=== PATIENT | male | born 1995 | race Caucasian/White ===

== ENCOUNTER 2020-05-04 15:12 | Emergency (ER) | payer SELFPAY ==
[2020-05-04 15:14] VITALS: PULSE 92; RESP 18; TEMP 36.5; O2SAT 96; BMI 30.8
--- NOTE | 2020-05-04 15:32 | ED_ITS ---
HPI - Nausea/Vomiting/Diarrhea General: Chief complaint: Nausea/Vomiting/Diarrhea Stated complaint: diarrhea, headaches, wants a full work up for STDS Time Seen by Provider: 05/04/20 15:25 History of Present Illness: HPI Narrative: Patient is a 25-year-old male who comes to the ED with concerns of possible STD exposure and multiple other complaints. Patient says for the past 3 weeks he has had nasal congestion/drainage, dry cough, headache and diarrhea. Denies any fever, chest pain, nausea/vomiting. Patient says 3 weeks ago was with a female and states that they did not have sex but they did mess around. He does not know her sexual history or if she has had any past STDs. He is concerned and wanted to get tested for STDs and HIV. Denies any sores, lesions on penis, discharge from penis, pain or tenderness to the testicles, dysuria or hematuria. Denies any Covid exposure. Associated nausea: No Associated symtoms: Reports headache(s); Denies change in vision, chest pain, dysuria, fatigue, nausea or palpitations Review of Systems Const: Denies: fever(s), chills or fatigue Eyes: Denies: change in vision or eye discomfort ENMT: Reports: throat pain (Only in the mornings), nasal discharge and nasal congestion; Denies: odynophagia Card: Denies: chest pain, palpitations, edema, swelling of feet/ankles, dyspnea on exertion or orthopnea Resp: Reports: non-productive cough; Denies: dyspnea or productive cough GI: Reports: diarrhea; Denies: abdominal pain, nausea, vomiting, constipation or hematochezia : Denies: flank pain, difficulty urinating, dysuria, hematuria, genital pain, genital lesions or penile discharge Musc: Denies: neck pain, back pain or extremity swelling Skin/Breast: Denies: rash or new lesions Neuro: Reports: headache(s); Denies: numbness in extremities or weakness in extremities Physical Exam Const: COMMON NORMALS: no acute distress, patient oriented x3, healthy appearing and alert GENERAL APPEARANCE: cooperative and comfortable HENMT: COMMON NORMALS: normocephalic HEAD & SCALP: normocephalic MOUTH: Normal oral and palatal mucosa present THROAT: posterior oropharynx normal and uvula midline Eye: COMMON NORMALS: Equal, round and reactive pupils present PUPIL: Yes Equal, round and reactive pupils present Neck/C-Spine: COMMON NORMALS: supple GENERAL: Yes normal visual inspection Resp: COMMON NORMALS: normal respiratory effort, No retractions, No use of accessory muscles and clear to auscultation bilaterally EFFORT & INSPECTION: Yes able to speak in complete sentences, No tachypneic, No respiratory distress and No labored AUSCULTATION: clear to auscultation bilaterally Cardio: COMMON NORMALS: regular rate, regular rhythm, S1 normal heart sound present, S2 normal heart sound present, No gallops present (Cardio), No clicks present (Cardio), No murmurs present (Cardio) and Peripheral pulses 2+ throughout RATE: regular rate RHYTHM: regular rhythm HEART SOUNDS: S1 normal heart sound present and S2 normal heart sound present PERIPHERAL PULSES: Peripheral pulses 2+ throughout GI: COMMON NORMALS: Normal to inspection, nondistended, normoactive bowel sounds present, Soft to palpation, non-tender and no masses PALPATION: Yes Soft to palpation : COMMON NORMALS: Yes no CVA tenderness BLADDER/KIDNEY EXAM: Yes no CVA tenderness Back/Pelvis: COMMON NORMALS: no CVA tenderness Extremity: COMMON NORMALS: normal to inspection and no pedal edema Neuro: COMMON NORMALS: patient oriented x3 and moves all extremities SENSORIUM/ORIENTATION: Yes alert Skin: GENERAL SKIN EXAM: dry skin Course Vital Signs: Vital signs: Vital Signs Temperature 97.7 F 05/04/20 15:14 Pulse Rate 88 05/04/20 17:17 Respiratory Rate 16 05/04/20 17:17 Blood Pressure 136/78 05/04/20 17:17 Pulse Oximetry 99 05/04/20 17:17 MDM - Nausea/Vomiting/Diarrhea MDM Narrative: Medical decision making narrative: Patient is a 25-year-old male who comes to the ED wanting STD testing and URI symptoms. Patient says he was sexually active with a female and he does not know her past sexual history. He would like to get all STD testing done. He denies any lesions or sores on his penis, no discharge from penis or pain or tenderness in his testicles. Patient does have some upper respiratory symptoms such as nasal drainage and congestion cough. Denies any fevers. Patient is a healthy male that appears in no acute distress or pain. Lungs were clear to auscultation bilaterally and no signs of any respiratory distress. White blood cell count 12.8 the rest of CBC and CMP was unremarkable. Chest x-ray showed no acute findings. Syphilis negative, HIV pending, gonorrhea chlamydia pending. Patient was given a prophylactic treatment of Rocephin and azithromycin for gonorrhea chlamydia. Patient diagnosed with viral syndrome and potential exposure to STD. He was discharged told to follow-up with his PCP in 7 to 10 days for reevaluation. Told him to contact [facility] to get the results of STD labs that were pending. Return to ED precautions given. Patient understood agree with plan. Lab Data: Attestation: I reviewed the patient's lab results. Labs: Lab Results 05/04/20 05/04/20 05/04/20 Range/Units 16:00 16:00 16:00 WBC 12.8 H (4.0-10.0) 10^3/ uL RBC 5.38 H (4.1-5.3) 10^6/u L Hgb 15.7 (11.7-16.6) g/dL Hct 48.7 (42.0-52.0) % MCV 90.5 (80-94) fL MCH 29.2 (28.0-34.0) pg MCHC 32.2 (30.0-36.0) g/dL RDW 12.9 (12.1-15.1) % Plt Count 350 (130-400) 10^3/c mm MPV 9.7 (7.4-10.4) fL Neut % (Auto) 72.2 % Lymph % (Auto) 16.1 % [place] % (Auto) 8.0 % Eos % (Auto) 1.8 % Baso % (Auto) 0.8 % Neut # (Auto) 9.26 H (1.8-7.7) 10^3/u L Lymph # (Auto) 2.1 (0.8-4.8) 10^3/u L Pre[place] # (Auto) 1.0 H (0.2-0.9) 10^3/u L Eos # (Auto) 0.2 (0.0-0.8) 10^3/u L Baso # (Auto) 0.1 (0.0-0.1) 10^3/u L Nucleated RBC % (a uto) 0 % Nucleated RBCs # 0.0 /100WBC Sodium 140 (136-145) mmol/L Potassium 4.2 (3.5-5.1) mmol/L Chloride 104 (98-107) mmol/L Carbon Dioxide 26 (22-29) mmol/L Anion Gap 14.2 (5-19) BUN 15 (6-20) mg/dL Creatinine 0.9 (0.7-1.2) mg/dL GFR Calculation 102.8 (90-130) mL/min Glucose 100 (65-115) mg/dL Calculated Osmolal ity 291 (285-295) mOsm/k g Calcium 9.4 (8.5-10.5) mg/dL Total Bilirubin 0.3 (0.15-1.2) mg/dL AST 54 H (0-40) U/L ALT 112 H (0-41) U/L Alkaline Phosphata se 149 H (40-130) IU/L Total Protein 6.9 (6.6-8.7) g/dL Albumin 4.7 (3.5-5.2) g/dL Globulin 2.2 (1.3-4.6) g/dL Lipase 23 (13-60) U/L Urine Color (Yellow) Urine Appearance (CLEAR) Urine pH (5-7) Ur Specific Gravit y (1.005-1.030) Urine Protein (Negative) Urine Glucose (UA) (Normal) Urine Ketones (Negative) Urine Blood (Negative) Urine Nitrate (Negative) Urine Bilirubin (Negative) Urine Urobilinogen (Negative) mg/dL Ur Leukocyte Yeimi ase (Negative) Urine RBC (0-2) /hpf Urine WBC (0-5) /hpf Ur Squamous Epith Cells (0-5) /hpf Amorphous Sediment Urine Bacteria (NONE) /hpf RPR Nonreactive (Nonreactive) HIV 1&2 Ab & HIV 1 Ag Non-reactive (Non-Reactiv) HIV 1&2 Antibody Non-reactive (Non-Reactiv) 05/04/20 Range/Units 16:08 WBC (4.0-10.0) 10^3/ uL RBC (4.1-5.3) 10^6/u L Hgb (11.7-16.6) g/dL Hct (42.0-52.0) % MCV (80-94) fL MCH (28.0-34.0) pg MCHC (30.0-36.0) g/dL RDW (12.1-15.1) % Plt Count (130-400) 10^3/c mm MPV (7.4-10.4) fL Neut % (Auto) % Lymph % (Auto) % [place] % (Auto) % Eos % (Auto) % Baso % (Auto) % Neut # (Auto) (1.8-7.7) 10^3/u L Lymph # (Auto) (0.8-4.8) 10^3/u L Preble # (Auto) (0.2-0.9) 10^3/u L Eos # (Auto) (0.0-0.8) 10^3/u L Baso # (Auto) (0.0-0.1) 10^3/u L Nucleated RBC % (a uto) % Nucleated RBCs # /100WBC Sodium (136-145) mmol/L Potassium (3.5-5.1) mmol/L Chloride (98-107) mmol/L Carbon Dioxide (22-29) mmol/L Anion Gap (5-19) BUN (6-20) mg/dL Creatinine (0.7-1.2) mg/dL GFR Calculation (90-130) mL/min Glucose (65-115) mg/dL Calculated Osmolal ity (285-295) mOsm/k g Calcium (8.5-10.5) mg/dL Total Bilirubin (0.15-1.2) mg/dL AST (0-40) U/L ALT (0-41) U/L Alkaline Phosphata se (40-130) IU/L Total Protein (6.6-8.7) g/dL Albumin (3.5-5.2) g/dL Globulin (1.3-4.6) g/dL Lipase (13-60) U/L Urine Color Yellow (Yellow) Urine Appearance Clear (CLEAR) Urine pH 5 (5-7) Ur Specific Gravit y 1.020 (1.005-1.030) Urine Protein Neg (Negative) Urine Glucose (UA) Norm (Normal) Urine Ketones Negative (Negative) Urine Blood Neg (Negative) Urine Nitrate Negative (Negative) Urine Bilirubin Neg (Negative) Urine Urobilinogen Norm (Negative) mg/dL Ur Leukocyte Yeimi ase Negative (Negative) Urine RBC None (0-2) /hpf Urine WBC None (0-5) /hpf Ur Squamous Epith Cells 0-4 H (0-5) /hpf Amorphous Sediment Not Reportable Urine Bacteria Trace (NONE) /hpf RPR (Nonreactive) HIV 1&2 Ab & HIV 1 Ag (Non-Reactiv) HIV 1&2 Antibody (Non-Reactiv) Imaging Data^: CXR: Attestation: I personally reviewed and interpreted this imaging study as follows: Radiologist's impression: [address] [address] XRay Report Signed Patient: Tereso Hammond Unit #: [id number] : 1995 Age/Sex: 25 / M ADM Date: 04/16 03/05 Loc: ER Room/Bed: Attending Dr: Ordering Provider/Ordering MD: Jersey Swanson Date of Service: 05/04/20 Procedure(s): XR chest 1V portable [id number] Accession Number(s): [id number] Report Number: [id number] WS: [id number] Exam: XR chest 1V portable [id number] Date/Time of Exam: 05/04/2020 4:00 PM Reason For Exam: cough Findings: The lungs are clear and fully expanded. Costophrenic angles are sharp. No infiltrates. Bronchovascular relief appears normal. Cardiac silhouette is unremarkable. Bony elements are intact. XR/XR chest 1V portable [id number] IMPRESSION: Unremarkable chest radiograph. Dictated By: Austin Mathew DO Signed By: Austin Mathew DO Signed Date/Time: 05/04/201615 DD/ 15 Discharge Plan Discharge Patient Disposition: Home Clinical Impression: Viral syndrome, Potential exposure to STD Condition: Stable Prescriptions: No Action ibuprofen 200 mg Tablet 800 mg PO PRN RF: 0 Day Time Allergy Pill 2 tab PO PRN RF: 0 Discharge Orders: Discharge Order (Routine); Ordered 05/04/20 Ordered By: Jersey Swanson Discharge Diet: Regular Discharge Activity: Increase activity as tolerated Patient Instructions: Chlamydia Infection (ED), Sexually Transmitted Diseases (ED), Safe Sex (ED), Viral Syndrome (ED) Activity Restrictions/Additional Instructions: Follow-up with medical provider as directed in 7 to 10 days for reevaluation. Return to the ER or your medical provider if condition worsens. Please read and understand discharge instructions. If any questions, please ask. Coding Level of Care Code ED Forest Manager for Kristofer Fwd Exam Comprehensive
--- NOTE | 2020-05-04 15:55 | XR_ITS ---
WS: [id number] Exam: XR chest 1V portable [id number] Date/Time of Exam: 05/04/2020 4:00 PM Reason For Exam: cough Findings: The lungs are clear and fully expanded. Costophrenic angles are sharp. No infiltrates. Bronchovascula r relief appears normal. Cardiac silhouette is unremarkable. Bony elements are intact. XR/XR chest 1V portable [id number] IMPRESSION: Unremarkable chest radiograph.
[2020-05-04] MEDS: sodium chloride 0.9% 1,000 ML 999 ML IV (16:16)
[2020-05-04] MEDS: azithromycin 250 mg Tablet 1000 MG PO (16:30)
[2020-05-04 16:34] LABS: Basophils # 0.1 10^3/uL (0.0-0.1); Basophils % 0.8 %; Eosinophils # 0.2 10^3/uL (0.0-0.8); Eosinophils % 1.8 %; Hematocrit 48.7 % (42.0-52.0); Hemoglobin 15.7 g/dL (11.7-16.6); Lymphocytes # 2.1 10^3/uL (0.8-4.8); Lymphocytes % 16.1 %; Mean Corpuscular HGB Conc 32.2 g/dL (30.0-36.0); Mean Corpuscular Hemoglobin 29.2 pg (28.0-34.0); Mean Corpuscular Volume 90.5 fL (80-94); Mean Platelet Volume 9.7 fL (7.4-10.4); Neutrophils # 9.26 10^3/uL (1.8-7.7); Neutrophils % 72.2 %; Nucleated Red Blood Cells % 0 %; Platelet Count 350 10^3/cmm (130-400); Red Blood Count 5.38 10^6/uL (4.1-5.3); Red Cell Distribution Width 12.9 % (12.1-15.1); White Blood Count 12.8 10^3/uL (4.0-10.0)
[2020-05-04 16:55] LABS: Alanine Aminotransferase 112 U/L (0-41); Albumin Level 4.7 g/dL (3.5-5.2); Alkaline Phosphatase 149 IU/L (40-130); Anion Gap 14.2 (5-19); Aspartate Amino Transferase 54 U/L (0-40); Blood Urea Nitrogen 15 mg/dL (6-20); Calcium 9.4 mg/dL (8.5-10.5); Carbon Dioxide 26 mmol/L (22-29); Chloride 104 mmol/L (98-107); Globulin 2.2 g/dL (1.3-4.6); Glomerular Filtration Rate 102.8 mL/min (90-130); Glucose 100 mg/dL (65-115); Lipase 23 U/L (13-60); Osmolality Calculated 291 mOsm/kg (285-295); Potassium 4.2 mmol/L (3.5-5.1); Sodium 140 mmol/L (136-145); Total Bilirubin 0.3 mg/dL (0.15-1.2); Total Protein 6.9 g/dL (6.6-8.7)
[2020-05-04 16:59] LABS: Rapid Plasma Reagin Syphilis Nonreactive (Nonreactive)
[2020-05-04 17:17] VITALS: BP 136/78; PULSE 88; RESP 16; O2SAT 99
[2020-05-04 17:19] LABS: Bilirubin Urine Neg (Negative); Blood Urine Neg (Negative); Glucose Urine UA Norm (Normal); Ketones Urine Negative (Negative); Leukocyte Esterase Urine Negative (Negative); Nitrate Urine Negative (Negative); Protein Urine Neg (Negative); Urine Appearance Clear (CLEAR); Urine Color Yellow (Yellow); Urobilinogen Urine Norm (Negative); pH Urine 5 (5-7)
[2020-05-04 17:20] LABS: Add Urine Culture? No; Bacteria Urine TRACE /hpf; Squamous Epithelial Cell Urine 0-4 /hpf (0-5)
[2020-05-04 19:46] LABS: HIV 1 & 2 Antibody Non-Reactive (Non-Reactiv); HIV 1 & 2 Antigen Non-Reactive (Non-Reactiv)
== END 2020-05-04 17:19 | disposition home or self-care (01) ==
PROVIDERS: Emergency Provider Physician Assistant
DX: Z20.2 Contact with and (suspected) exposure to infections with a predominantly sexual mode of transmission (principal); B34.9 Viral infection, unspecified
CPT/HCPCS: 12345; 71045; 80053; 81001; 83690; 85025; 86592; 87806; 96365; 99281; 99283; J0696; J7030; Q0144

== ENCOUNTER 2020-06-06 13:01 | Emergency (ER) | payer SELFPAY ==
--- NOTE | 2020-06-06 13:07 | ECG_ITS ---
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 [email or web address]
--- NOTE | 2020-06-06 13:07 | XRR_ITS ---
PROCEDURE INFORMATION: Exam: XR Chest, 1 View Exam date and time: 06/06/2020 1:10 PM Age: 25 years old Clinical indication: Cough and dyspnea; Patient HX: Chest chavez when he drinks energy drinks; Additional info: Dyspnea/cough TECHNIQUE: Imaging protocol: XR of the chest Views: 1 view. COMPARISON: CR XR chest 1V portable [id number] 05/04/2020 4:06 PM FINDINGS: Lungs: Unremarkable. No consolidation. Pleural space: Unremarkable. No pleural effusion. No pneumothorax. Heart/Mediastinum: Unremarkable. No cardiomegaly. Bones/joints: Unremarkable. XR/XR chest 1V portable [id number] IMPRESSION: No acute findings.
[2020-06-06 13:18] VITALS: BP 132/95; PULSE 103; RESP 16; TEMP 36.9; O2SAT 97; BMI 32.3
--- NOTE | 2020-06-06 13:45 | ED_ITS ---
Documented by User: ASHER Younger 06/07/20 17:32 HPI - Chest Pain General: Chief Complaint: Chest Pain Stated Complaint: chest pain when consuming energy drinks Time Seen by Provider: 06/06/20 13:43 History of Present Illness: HPI narrative: Patient is a 25-year-old male who comes to the ED with chest pain. Patient says he started getting chest pain about 4 days ago. He admits to drinking multiple energy drinks a day for the past week and also consuming this preworkout product that has caffeine as well. He says he has had well over the recommended doses of preworkout in the last week. He now has this chest pain that he describes kind of as an aching and burning feeling. Says whenever he eats or drinks something chest pain increases. He says he has a history of acid reflux but usually just drinks some milk to help with symptoms, but this time drinking milk did not help his symptoms. Denies any shortness of breath, nausea/vomiting, abdominal pain or bladder or bowel symptoms. Associated symptoms: Deny abdominal pain, dyspnea, fever(s), nausea, palpitations or vomiting Review of Systems Const: Denies: fever(s), chills or fatigue Eyes: Denies: change in vision or eye discomfort ENMT: Reports: other (acid reflux symptoms); Denies: throat pain, odynophagia, nasal discharge or nasal congestion Card: Reports: chest pain; Denies: palpitations, edema, swelling of feet/ankles, dyspnea on exertion or orthopnea Resp: Denies: dyspnea, productive cough or non-productive cough GI: Denies: abdominal pain, nausea, vomiting, diarrhea, constipation or hematochezia : Denies: flank pain, difficulty urinating, dysuria or hematuria Musc: Denies: neck pain, back pain or extremity swelling Skin/Breast: Denies: rash or new lesions Neuro: Denies: headache(s), numbness in extremities or weakness in extremities PFSH ED PFSH: Social History Smoking and tobacco status: current every day smoker e-cigarettes Alcohol intake: current Alcohol intake frequency: holidays/special occasions only Physical Exam Const: COMMON NORMALS: no acute distress, patient oriented x3, healthy appearing and alert GENERAL APPEARANCE: cooperative and comfortable HENMT: COMMON NORMALS: normocephalic HEAD & SCALP: normocephalic MOUTH: Normal oral and palatal mucosa present THROAT: posterior oropharynx normal and uvula midline Eye: COMMON NORMALS: Equal, round and reactive pupils present PUPIL: Yes Equal, round and reactive pupils present Neck/C-Spine: COMMON NORMALS: supple GENERAL: Yes normal visual inspection Resp: COMMON NORMALS: normal respiratory effort, No retractions, No use of accessory muscles and clear to auscultation bilaterally AUSCULTATION: clear to auscultation bilaterally Cardio: COMMON NORMALS: regular rate, regular rhythm, S1 normal heart sound present, S2 normal heart sound present, No gallops present (Cardio), No clicks present (Cardio), No murmurs present (Cardio) and Peripheral pulses 2+ throughout RATE: regular rate RHYTHM: regular rhythm HEART SOUNDS: S1 normal heart sound present and S2 normal heart sound present PERIPHERAL PULSES: Peripheral pulses 2+ throughout GI: COMMON NORMALS: Normal to inspection, nondistended, normoactive bowel sounds present, Soft to palpation, non-tender and no masses PALPATION: Yes Soft to palpation : COMMON NORMALS: Yes no CVA tenderness BLADDER/KIDNEY EXAM: Yes no CVA tenderness Back/Pelvis: COMMON NORMALS: no CVA tenderness Extremity: COMMON NORMALS: normal to inspection and no pedal edema Neuro: COMMON NORMALS: patient oriented x3 and moves all extremities SENSORIUM/ORIENTATION: Yes alert Skin: GENERAL SKIN EXAM: dry skin Course Vital Signs: Vital signs: Vital Signs Temperature 98.4 F 06/06/20 13:18 Pulse Rate 70 06/06/20 17:51 Respiratory Rate 18 06/06/20 17:51 Blood Pressure 126/70 06/06/20 17:51 Pulse Oximetry 97 06/06/20 17:51 MDM - Chest Pain Lab Data: Attestation: I reviewed the patient's lab results. Labs: Lab Results 06/06/20 06/06/20 06/06/20 Range/Units 14:15 14:15 14:15 WBC 11.9 H (4.0-10.0) 10^3/ uL RBC 5.04 (4.1-5.3) 10^6/u L Hgb 15.0 (11.7-16.6) g/dL Hct 45.4 (42.0-52.0) % MCV 90.1 (80-94) fL MCH 29.8 (28.0-34.0) pg MCHC 33.0 (30.0-36.0) g/dL RDW 13.3 (12.1-15.1) % Plt Count 321 (130-400) 10^3/c mm MPV 9.9 (7.4-10.4) fL Neut % (Auto) 58.4 % Lymph % (Auto) 26.2 % Real % (Auto) 9.6 % Eos % (Auto) 4.7 % Baso % (Auto) 0.8 % Neut # (Auto) 6.96 (1.8-7.7) 10^3/u L Lymph # (Auto) 3.1 (0.8-4.8) 10^3/u L Real # (Auto) 1.1 H (0.2-0.9) 10^3/u L Eos # (Auto) 0.6 (0.0-0.8) 10^3/u L Baso # (Auto) 0.1 (0.0-0.1) 10^3/u L Nucleated RBC % (a uto) 0 % Nucleated RBCs # 0.0 /100WBC Sodium Cancelled Potassium Cancelled Chloride Cancelled Carbon Dioxide Cancelled Anion Gap Cancelled BUN Cancelled Creatinine Cancelled GFR Calculation Cancelled Glucose Cancelled Calculated Osmolal ity Cancelled Calcium Cancelled Magnesium Cancelled Total Bilirubin Cancelled AST Cancelled ALT Cancelled Alkaline Phosphata se Cancelled Troponin T Baselin e Cancelled Total Protein Cancelled Albumin Cancelled Globulin Cancelled Lipase Cancelled Urine Color (Yellow) Urine Appearance (CLEAR) Urine pH (5-7) Ur Specific Gravit y (1.005-1.030) Urine Protein (Negative) Urine Glucose (UA) (Normal) Urine Ketones (Negative) Urine Blood (Negative) Urine Nitrate (Negative) Urine Bilirubin (Negative) Urine Urobilinogen (Negative) mg/dL Ur Leukocyte Yeimi ase (Negative) Urine RBC (0-2) /hpf Urine WBC (0-5) /hpf Ur Squamous Epith Cells (0-5) /hpf Ur Transition Epit h Cell /hpf Amorphous Sediment Urine Bacteria (NONE) /hpf 06/06/20 06/06/20 06/06/20 Range/Units 14:20 14:50 14:52 WBC (4.0-10.0) 10^3/ uL RBC (4.1-5.3) 10^6/u L Hgb (11.7-16.6) g/dL Hct (42.0-52.0) % MCV (80-94) fL MCH (28.0-34.0) pg MCHC (30.0-36.0) g/dL RDW (12.1-15.1) % Plt Count (130-400) 10^3/c mm MPV (7.4-10.4) fL Neut % (Auto) % Lymph % (Auto) % Real % (Auto) % Eos % (Auto) % Baso % (Auto) % Neut # (Auto) (1.8-7.7) 10^3/u L Lymph # (Auto) (0.8-4.8) 10^3/u L Real # (Auto) (0.2-0.9) 10^3/u L Eos # (Auto) (0.0-0.8) 10^3/u L Baso # (Auto) (0.0-0.1) 10^3/u L Nucleated RBC % (a uto) % Nucleated RBCs # /100WBC Sodium 141 Potassium 3.6 Chloride 105 Carbon Dioxide 25 Anion Gap 14.6 BUN 13 Creatinine 1.0 GFR Calculation 91.0 Glucose 121 H Calculated Osmolal ity 293 Calcium 9.3 Magnesium 2.3 Total Bilirubin 0.4 AST 24 ALT 36 Alkaline Phosphata se 136 H Troponin T Baselin e 6 Total Protein 6.6 Albumin 4.3 Globulin 2.3 Lipase 31 Urine Color Yellow (Yellow) Urine Appearance Clear (CLEAR) Urine pH 5 (5-7) Ur Specific Gravit y 1.020 (1.005-1.030) Urine Protein Neg (Negative) Urine Glucose (UA) Norm (Normal) Urine Ketones Negative (Negative) Urine Blood Neg (Negative) Urine Nitrate Negative (Negative) Urine Bilirubin Neg (Negative) Urine Urobilinogen 1 H (Negative) mg/dL Ur Leukocyte Yeimi ase Negative (Negative) Urine RBC 0-4 H (0-2) /hpf Urine WBC None (0-5) /hpf Ur Squamous Epith Cells None (0-5) /hpf Ur Transition Epit h Cell None /hpf Amorphous Sediment Not Reportable Urine Bacteria Trace (NONE) /hpf Imaging Data^: CXR: Attestation: I personally reviewed and interpreted this imaging study as follows: Radiologist's impression: [address] [address] XRay Report Signed Patient: Tereso Hammond Unit #: [id number] : 1995 Age/Sex: 25 / M ADM Date: 06/06/20 Loc: ER Room/Bed: Attending Dr: Ordering Provider/Ordering MD: Too Becker DO Date of Service: 06/06/20 Procedure(s): XR chest 1V portable [id number] Accession Number(s): [id number] Report Number: [id number] PROCEDURE INFORMATION: Exam: XR Chest, 1 View Exam date and time: 06/06/2020 1:10 PM Age: 25 years old Clinical indication: Cough and dyspnea; Patient HX: Chest chavez when he drinks energy drinks; Additional info: Dyspnea/cough TECHNIQUE: Imaging protocol: XR of the chest Views: 1 view. COMPARISON: CR XR chest 1V portable [id number] 05/04/2020 4:06 PM FINDINGS: Lungs: Unremarkable. No consolidation. Pleural space: Unremarkable. No pleural effusion. No pneumothorax. Heart/Mediastinum: Unremarkable. No cardiomegaly. Bones/joints: Unremarkable. XR/XR chest 1V portable [id number] IMPRESSION: No acute findings. Dictated By: Hilario Snider Signed By: Hilario Snider Signed Date/Time: 06/06/201334 DD/ 1333 EKG Data^: EKG 1: Attestation: I personally reviewed and interpreted this EKG as follows: EKG interpretation date: 06/06/20 Interpretation: Normal sinus rhythm, 86 bpm, No acute findings Discharge Plan Discharge Patient Disposition: Home Clinical Impression: Chest pain, non-cardiac Condition: Stable Prescriptions: No Action doxycycline hyclate 100 mg tablet 100 mg PO BID 7 Days Qty: 14 RF: 0 prednisone 10 mg tablet 30 mg PO DAILY 5 Days Qty: 15 RF: 0 ibuprofen 200 mg Tablet 800 mg PO PRN RF: 0 Day Time Allergy Pill 2 tab PO PRN RF: 0 Discharge Orders: Discharge ED (Routine); Ordered 06/06/20 Ordered By: Neema Bartholomew Discharge Diet: Regular Discharge Activity: Increase activity as tolerated Patient Instructions: Noncardiac Chest Pain (ED) Activity Restrictions/Additional Instructions: Follow-up with medical provider as directed in 7 to 10 days. Avoid drinking any caffeine for the next several days and make sure to drink plenty of water and stay hydrated. Remember to limit caffeine consumption daily. continue taking all previously prescribed home medications. Return to the ER or your medical provider if condition worsens. Please read and understand discharge instructions. If any questions, please ask. Sign Out Sign Out Data: Patient Sign Out occurred on 06/06/20 at 17:09. Patient's care was discussed, and care was transferred from to MARCIO Saenz. Coding Level of Care Code ED Telecommunication Equipment Repairer for Chg Fwd Exam Comprehensive Documented by User: MARCIO Saenz 06/06/20 17:23 HPI - Chest Pain General: Chief Complaint: Chest Pain Stated Complaint: chest pain when consuming energy drinks Time Seen by Provider: 06/06/20 13:43 PFS ED PFSH: Social History Smoking and tobacco status: current every day smoker e-cigarettes Alcohol intake: current Alcohol intake frequency: holidays/special occasions only Course ED course: 25-year-old male patient presents to the emergency department with complaints of chest pain. He reports taking caffeine along with preworkout formula orally. Reports trying to gain muscle. States broke out in a rash when he took too much of it, went to urgent care yesterday was prescribed doxycycline and prednisone which she has not started. He reports burning sensation across the left side of his chest that comes and goes. He currently is not experiencing pain. Troponin negative, EKG normal, he was counseled to decrease caffeine intake and increase fluid intake such as water and other caffeine free drinks. Verbalized understanding. Recommended to continue doxycycline and prednisone. Questions were answered. Vital Signs: Vital signs: Vital Signs Temperature 98.4 F 06/06/20 13:18 Pulse Rate 70 06/06/20 17:51 Respiratory Rate 18 06/06/20 17:51 Blood Pressure 126/70 06/06/20 17:51 Pulse Oximetry 97 06/06/20 17:51 MDM - Chest Pain Lab Data: Labs: Lab Results 06/06/20 06/06/20 06/06/20 Range/Units 14:15 14:15 14:15 WBC 11.9 H (4.0-10.0) 10^3/ uL RBC 5.04 (4.1-5.3) 10^6/u L Hgb 15.0 (11.7-16.6) g/dL Hct 45.4 (42.0-52.0) % MCV 90.1 (80-94) fL MCH 29.8 (28.0-34.0) pg MCHC 33.0 (30.0-36.0) g/dL RDW 13.3 (12.1-15.1) % Plt Count 321 (130-400) 10^3/c mm MPV 9.9 (7.4-10.4) fL Neut % (Auto) 58.4 % Lymph % (Auto) 26.2 % Real % (Auto) 9.6 % Eos % (Auto) 4.7 % Baso % (Auto) 0.8 % Neut # (Auto) 6.96 (1.8-7.7) 10^3/u L Lymph # (Auto) 3.1 (0.8-4.8) 10^3/u L Real # (Auto) 1.1 H (0.2-0.9) 10^3/u L Eos # (Auto) 0.6 (0.0-0.8) 10^3/u L Baso # (Auto) 0.1 (0.0-0.1) 10^3/u L Nucleated RBC % (a uto) 0 % Nucleated RBCs # 0.0 /100WBC Sodium Cancelled Potassium Cancelled Chloride Cancelled Carbon Dioxide Cancelled Anion Gap Cancelled BUN Cancelled Creatinine Cancelled GFR Calculation Cancelled Glucose Cancelled Calculated Osmolal ity Cancelled Calcium Cancelled Magnesium Cancelled Total Bilirubin Cancelled AST Cancelled ALT Cancelled Alkaline Phosphata se Cancelled Troponin T Baselin e Cancelled Total Protein Cancelled Albumin Cancelled Globulin Cancelled Lipase Cancelled Urine Color (Yellow) Urine Appearance (CLEAR) Urine pH (5-7) Ur Specific Gravit y (1.005-1.030) Urine Protein (Negative) Urine Glucose (UA) (Normal) Urine Ketones (Negative) Urine Blood (Negative) Urine Nitrate (Negative) Urine Bilirubin (Negative) Urine Urobilinogen (Negative) mg/dL Ur Leukocyte Yeimi ase (Negative) Urine RBC (0-2) /hpf Urine WBC (0-5) /hpf Ur Squamous Epith Cells (0-5) /hpf Ur Transition Epit h Cell /hpf Amorphous Sediment Urine Bacteria (NONE) /hpf 06/06/20 06/06/20 06/06/20 Range/Units 14:20 14:50 14:52 WBC (4.0-10.0) 10^3/ uL RBC (4.1-5.3) 10^6/u L Hgb (11.7-16.6) g/dL Hct (42.0-52.0) % MCV (80-94) fL MCH (28.0-34.0) pg MCHC (30.0-36.0) g/dL RDW (12.1-15.1) % Plt Count (130-400) 10^3/c mm MPV (7.4-10.4) fL Neut % (Auto) % Lymph % (Auto) % Real % (Auto) % Eos % (Auto) % Baso % (Auto) % Neut # (Auto) (1.8-7.7) 10^3/u L Lymph # (Auto) (0.8-4.8) 10^3/u L Real # (Auto) (0.2-0.9) 10^3/u L Eos # (Auto) (0.0-0.8) 10^3/u L Baso # (Auto) (0.0-0.1) 10^3/u L Nucleated RBC % (a uto) % Nucleated RBCs # /100WBC Sodium 141 Potassium 3.6 Chloride 105 Carbon Dioxide 25 Anion Gap 14.6 BUN 13 Creatinine 1.0 GFR Calculation 91.0 Glucose 121 H Calculated Osmolal ity 293 Calcium 9.3 Magnesium 2.3 Total Bilirubin 0.4 AST 24 ALT 36 Alkaline Phosphata se 136 H Troponin T Baselin e 6 Total Protein 6.6 Albumin 4.3 Globulin 2.3 Lipase 31 Urine Color Yellow (Yellow) Urine Appearance Clear (CLEAR) Urine pH 5 (5-7) Ur Specific Gravit y 1.020 (1.005-1.030) Urine Protein Neg (Negative) Urine Glucose (UA) Norm (Normal) Urine Ketones Negative (Negative) Urine Blood Neg (Negative) Urine Nitrate Negative (Negative) Urine Bilirubin Neg (Negative) Urine Urobilinogen 1 H (Negative) mg/dL Ur Leukocyte Yeimi ase Negative (Negative) Urine RBC 0-4 H (0-2) /hpf Urine WBC None (0-5) /hpf Ur Squamous Epith Cells None (0-5) /hpf Ur Transition Epit h Cell None /hpf Amorphous Sediment Not Reportable Urine Bacteria Trace (NONE) /hpf Discharge Plan Discharge Patient Disposition: Home Clinical Impression: Chest pain, non-cardiac Condition: Stable Prescriptions: No Action doxycycline hyclate 100 mg tablet 100 mg PO BID 7 Days Qty: 14 RF: 0 prednisone 10 mg tablet 30 mg PO DAILY 5 Days Qty: 15 RF: 0 ibuprofen 200 mg Tablet 800 mg PO PRN RF: 0 Day Time Allergy Pill 2 tab PO PRN RF: 0 Discharge Orders: Discharge ED (Routine); Ordered 06/06/20 Ordered By: Neema Bartholomew Discharge Diet: Regular Discharge Activity: Increase activity as tolerated Patient Instructions: Noncardiac Chest Pain (ED) Activity Restrictions/Additional Instructions: Follow-up with medical provider as directed in 7 to 10 days. Avoid drinking any caffeine for the next several days and make sure to drink plenty of water and stay hydrated. Remember to limit caffeine consumption daily. continue taking all previously prescribed home medications. Return to the ER or your medical provider if condition worsens. Please read and understand discharge instructions. If any questions, please ask. Sign Out Sign Out Data: Patient Sign Out occurred on 06/06/20 at 17:09. Patient's care was discussed, and care was transferred from to MARCIO Saenz. Coding Level of Care Code ED Telecommunication Equipment Repairer for Kristofer Fwd Exam Comprehensive
[2020-06-06] MEDS: lidocaine 2% viscous 15 ML, aluminum-mag hydrox-simethicon 30 ML, sucralfate oral liq 1 GM PO (14:35)
[2020-06-06] MEDS: aspirin 325 mg Tablet PO (14:35)
[2020-06-06 14:39] LABS: Basophils # 0.1 10^3/uL (0.0-0.1); Basophils % 0.8 %; Eosinophils # 0.6 10^3/uL (0.0-0.8); Eosinophils % 4.7 %; Hematocrit 45.4 % (42.0-52.0); Lymphocytes # 3.1 10^3/uL (0.8-4.8); Lymphocytes % 26.2 %; Mean Corpuscular Hemoglobin 29.8 pg (28.0-34.0); Mean Corpuscular Volume 90.1 fL (80-94); Mean Platelet Volume 9.9 fL (7.4-10.4); Monocytes # 1.1 10^3/uL (0.2-0.9); Monocytes % 9.6 %; Neutrophils # 6.96 10^3/uL (1.8-7.7); Neutrophils % 58.4 %; Nucleated Red Blood Cells % 0 %; Platelet Count 321 10^3/cmm (130-400); Red Blood Count 5.04 10^6/uL (4.1-5.3); Red Cell Distribution Width 13.3 % (12.1-15.1); White Blood Count 11.9 10^3/uL (4.0-10.0)
--- NOTE | 2020-06-06 15:07 | ECG_ITS ---
[facility] Test Date: 2020-06-06 Pat Name: Tereso Hammond Department: Room: Gender: Male Rn Transplant: : 1995 Requested By: Estephania Crook Order Number: [id number] Gill MD: Darrius Chua M.D. Measurements Intervals [place] Rate: 86 P: 66 PA: 174 QRS: 27 QRSD: 86 T: 12 QT: 328 QTc: 393 Interpretive Statements SINUS RHYTHM WITH SINUS ARRHYTHMIA POSSIBLE LEFT ATRIAL ENLARGEMENT [-0.1mV P WAVE IN V1/V2] Compared to ECG 06/06/2020 13:56:07 No significant changes Electronically Signed On 06-06-2020 18:37:20 BLOCK GREASER by Darrius Chua M.D. [id number]
[2020-06-06 15:17] LABS: Bilirubin Urine Neg (Negative); Blood Urine Neg (Negative); Glucose Urine UA Norm (Normal); Ketones Urine Negative (Negative); Nitrate Urine Negative (Negative); Protein Urine Neg (Negative); Urine Appearance Clear (CLEAR); Urine Color Yellow (Yellow); Urobilinogen Urine 1 mg/dL (Negative); pH Urine 5 (5-7)
[2020-06-06 15:21] LABS: Add Urine Culture? No; Bacteria Urine TRACE /hpf; RBC Urine 0-4 /hpf (0-2)
[2020-06-06 15:42] LABS: Alanine Aminotransferase 36 U/L (0-41); Albumin Level 4.3 g/dL (3.5-5.2); Alkaline Phosphatase 136 IU/L (40-130); Anion Gap 14.6 (5-19); Aspartate Amino Transferase 24 U/L (0-40); Blood Urea Nitrogen 13 mg/dL (6-20); Calcium 9.3 mg/dL (8.5-10.5); Carbon Dioxide 25 mmol/L (22-29); Chloride 105 mmol/L (98-107); Globulin 2.3 g/dL (1.3-4.6); Glucose 121 mg/dL (65-115); Lipase 31 U/L (13-60); Magnesium 2.3 mg/dL (1.7-2.3); Osmolality Calculated 293 mOsm/kg (285-295); Potassium 3.6 mmol/L (3.5-5.1); Sodium 141 mmol/L (136-145); Total Bilirubin 0.4 mg/dL (0.15-1.2); Total Protein 6.6 g/dL (6.6-8.7)
[2020-06-06 16:01] LABS: Leukocyte Esterase Urine Negative (Negative)
[2020-06-06 16:22] VITALS: BP 126/70; PULSE 72; RESP 16; O2SAT 97
--- NOTE | 2020-06-06 16:51 | PC.NURSE ---
during pt rounding, pt noted asleep in no apparent distress
--- NOTE | 2020-06-06 16:52 | PC.NURSE ---
lab called for status check of troponin. Lab will run troponin after request. AUTOMATION QA LEAD notified
[2020-06-06 17:06] LABS: Troponin(5th) Baseline 6 ng/L (0-15)
[2020-06-06 17:51] VITALS: BP 126/70; PULSE 70; RESP 18; O2SAT 97
== END 2020-06-06 17:55 | disposition home or self-care (01) ==
PROVIDERS: Emergency Medicine; Family Medicine; Physician Assistant; Emergency Provider Nurse Practitioner Family
DX: R07.89 Other chest pain (principal); F17.290 Nicotine dependence, other tobacco product, uncomplicated
CPT/HCPCS: 12345; 71045; 80053; 81001; 83690; 83735; 84484; 85025; 93005; 99282; 99283

== ENCOUNTER 2020-09-10 11:01 | Emergency (ER) | payer SELFPAY ==
--- NOTE | 2020-09-10 11:01 | XRR_ITS ---
PROCEDURE INFORMATION: Exam: XR Right Knee Exam date and time: 09/10/2020 11:23 AM Age: 25 years old Clinical indication: Pain; Knee; Right; Additional info: Injury/pain TECHNIQUE: Imaging protocol: XR Right knee. Views: 3 views. COMPARISON: No relevant prior studies available. FINDINGS: Bones/joints: There is a 3.5 cm exostosis on the medial aspect of the distal femoral metaphysis. No fracture or other acute abnormalities are seen. There are no significant degenerative changes. Soft tissues: Normal. XR/XR knee RT 3V* [id number] IMPRESSION: No acute abnormality.
[2020-09-10 11:11] VITALS: BP 120/84; PULSE 92; RESP 20; TEMP 37.1; O2SAT 98; BMI 33.0
--- NOTE | 2020-09-10 11:11 | ED_ITS ---
HPI - Extremity Injury (Lower) General: Chief Complaint: Extremity Injury, Lower Stated Complaint: R KNEE PAIN/INJURY Time Seen by Provider: 09/10/20 11:01 Source: patient Mode of arrival: ambulatory Limitations: no limitations History of Present Illness: HPI Narrative: Patient is a 25-year-old male who presents to ED today with a complaint of right knee pain. Patient tells me he was stretching in bed last night and immediately felt pain to the medial aspect of his right knee. Patient tells me he has a previous injury in that knee at the age of 14 but does not know specifically what he was diagnosed with. complaint: knee injury Onset (ago): hour(s) Place: home Severity: moderate Relieving factors: immobilization Exacerbating factors: weight bearing and movement Context: other (stretching) Associated symptoms: Reports no associated symptoms Other symptoms: none Review of Systems Const: Denies: fever(s) Card: Denies: chest pain Resp: Denies: dyspnea Musc: Reports: joint pain (R knee) and limited range of motion; Denies: neck pain, back pain, extremity pain, extremity swelling, joint swelling, joint redness or joint warmth Neuro: Denies: numbness in extremities or sensory changes PFSH ED PFSH: Social History Smoking and tobacco status: current every day smoker e-cigarettes Alcohol intake: current Alcohol intake frequency: holidays/special occasions only Physical Exam Const: COMMON NORMALS: no acute distress, patient oriented x3, no limitations and alert GENERAL APPEARANCE: cooperative Extremity: GENERAL: Yes normal exam except as noted RIGHT LOWER EXTREMITY: Yes knee joint Right knee: Yes ROM (limited flexion secondary to pain) and Yes neurovascular exam (normal) EXTREMITY IMAGE (FRONT): 1. TTP; no swelling appreciated 2. firm non-mobile mass noted here; states this has been present since his injury at the age of 14; no redness/warmth Neuro: COMMON NORMALS: patient oriented x3, moves all extremities, no focal motor deficits and no sensory deficits noted SENSORIUM/ORIENTATION: Yes alert Course Vital Signs: Vital signs: Vital Signs Temperature 98.7 F 09/10/20 11:11 Pulse Rate 92 09/10/20 11:11 Respiratory Rate 20 H 09/10/20 11:11 Blood Pressure 120/84 09/10/20 11:11 Pulse Oximetry 98 03/28/21 11:11 MDM - Extremity Injury (Lower) MDM Narrative: Medical decision making narrative: Mass on leg is an exostosis as I suspected. He has tenderness to medial knee from stretching in bed last night. Discussed how XR will not evaluate for ligamentous or meniscus injury although I would think unlikely given his MOA. Recommend conservative treatment and follow up with PCP in 2 weeks for continued pain. Discharge Plan Discharge Patient Disposition: Home Clinical Impression: Exostosis of femur Injury of right knee Qualifiers: Encounter type: initial encounter Qualified Code(s): S89.91XA - Unspecified injury of right lower leg, initial encounter Condition: Stable Prescriptions: No Action doxycycline hyclate 100 mg tablet 100 mg PO BID 7 Days Qty: 14 RF: 0 prednisone 10 mg tablet 30 mg PO DAILY 5 Days Qty: 15 RF: 0 ibuprofen 200 mg Tablet 800 mg PO PRN RF: 0 Day Time Allergy Pill 2 tab PO PRN RF: 0 Discharge Orders: Discharge ED (Routine); Ordered 09/10/20 Ordered By: Sudha Lau Patient Instructions: Knee Sprain (ED), RICE Therapy (ED) Activity Restrictions/Additional Instructions: As discussed you may be weight bearing as tolerated. Case management should contact you to set you up with a primary care provider should pain persist past 2 weeks. 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 Should this begin bothering you or become painful please seek medical evaluation. Coding Level of Care Code ED Decorating Machine Operator for Kristofer Fwd Exam Expanded Problem Focused
--- NOTE | 2020-09-14 13:31 | DCPLANNER ---
application defense manager had message to speak with patient about getting established with a primary care physician. application defense manager called phone number [phone], unable to speak with patient at this time, and a voicemail box has not been set up.
== END 2020-09-10 12:18 | disposition home or self-care (01) ==
PROVIDERS: Emergency Provider Physician Assistant
DX: M89.9 Disorder of bone, unspecified (principal); S89.91XA Unspecified injury of right lower leg, initial encounter; F17.290 Nicotine dependence, other tobacco product, uncomplicated; X50.9XXA Other and unspecified overexertion or strenuous movements or postures, initial encounter
CPT/HCPCS: 73562; 99283; E0114

== ENCOUNTER 2021-02-07 16:08 | Emergency (ER) | payer SELFPAY ==
[2021-02-07 16:27] VITALS: BP 122/79; PULSE 76; RESP 16; TEMP 36.2; O2SAT 97; BMI 19.9
--- NOTE | 2021-02-07 16:27 | ECG_ITS ---
[facility] Test Date: 2021-02-07 Pat Name: Tereso Hammond Department: Room: Gender: Male Otolaryngology Rep: : 1995 Requested By: Sudha Lau Order Number: [id number] Jairo MD: RADHA ROSSI Measurements Intervals [place] Rate: 76 P: 53 TX: 159 QRS: 41 QRSD: 82 T: 23 QT: 336 QTc: 380 Interpretive Statements SINUS RHYTHM Compared to ECG 06/06/2020 15:04:02 Sinus arrhythmia no longer present Electronically Signed On 02-07-2021 21:09:46 CDT by RADHA ROSSI [id number]
--- NOTE | 2021-02-07 16:28 | XRR_ITS ---
PROCEDURE INFORMATION: Exam: XR Chest Exam date and time: 02/07/2021 4:28 PM Age: 25 years old Clinical indication: Pain; Right-sided; Additional info: Chest pain TECHNIQUE: Imaging protocol: XR of the chest. Views: 1 view. Total images: 1 COMPARISON: CR XR chest 1V portable [id number] 06/06/2020 1:07 PM FINDINGS: Lungs: No visible active interstitial or alveolar airspace disease. Pleural spaces: Unremarkable. No pleural effusion. No pneumothorax. Heart/Mediastinum: Unremarkable. No cardiomegaly. Bones/joints: Unremarkable. XR/XR chest 1V portable [id number] IMPRESSION: Nonacute.
== END 2021-02-07 20:40 | disposition home or self-care (01) ==
PROVIDERS: Emergency Provider Emergency Medicine
DX: R07.9 Chest pain, unspecified (principal)
CPT/HCPCS: 71045; 93005